=== PATIENT | female | born 1985 | race Caucasian/White ===

== ENCOUNTER 2021-04-02 19:59 | Emergency (ER) | payer OTHER ==
[~2021-04-02] VITALS: Ht 144.8 cm; Wt 43.1 kg
[~2021-04-02 19:59] MED LIST: DEPO-PROVER150 MG/M1; ERYTHROMYCIN E3.5 G1 OPHTHALMIC; IBUPROFEN 800800 MG PO; NOHOMEMEDICATIONS; NORCO 5-325 TA1 EACH PO; VISINE15 ML
[2021-04-02] MEDS ORDERED: METRONIDAZOLE500 M4 PO (21:54)
[2021-04-02] MEDS ORDERED: DOXYCYCLINE 10100 MG PO (21:54)
[2021-04-02] MEDS ORDERED: NORCO5 PO (22:07)
[2021-04-02 22:20] VITALS: BP 108/69
== END 2021-04-02 22:21 | disposition home or self-care (01) ==
LOC: M.ERS 19:59
DX: S62.662A Nondisplaced fracture of distal phalanx of right middle finger, initial encounter for closed fracture (principal); S61.452A Open bite of left hand, initial encounter; S81.052A Open bite, left knee, initial encounter; S71.152A Open bite, left thigh, initial encounter; Z98.890 Other specified postprocedural states; Z88.1 Allergy status to other antibiotic agents; W54.0XXA Bitten by dog, initial encounter; Y93.89 Activity, other specified; Y92.89 Other specified places as the place of occurrence of the external cause; Y99.0 Civilian activity done for income or pay